=== PATIENT | male | born 1995 | race African-American/Black ===

== ENCOUNTER 2018-02-03 15:53 | Emergency (ER) | payer SELFPAY ==
[~2018-02-03] VITALS: Ht 175.3 cm; Wt 78.0 kg
[2018-02-03 15:58] VITALS: BP 128/64
== END 2018-02-03 18:52 | disposition left against medical advice (07) ==
LOC: ER 15:53
DX: M79.605 Pain in left leg (principal); Z53.21 Procedure and treatment not carried out due to patient leaving prior to being seen by health care provider